=== PATIENT | male | born 1980 | race Caucasian/White ===

== ENCOUNTER 2022-01-22 09:15 | Emergency (ER) | payer BC ==
[2022-01-22] MEDS ORDERED: Lidocaine 1% 5 ML VIAL INJECT ONE (09:19)
[2022-01-22] MEDS ORDERED: Bacitracin Oint 1 GM U/D Packet TOP ONE (09:37)
[2022-01-22] MEDS ORDERED: Diphtheria,Pertussis(Acell),Tetanus Vaccine 0.5 ML Syringe IM ONE (09:37)
== END 2022-01-22 09:47 | disposition home or self-care (01) ==
LOC: DL.ED 09:15
DX: S60.551A Superficial foreign body of right hand, initial encounter (principal); Z23 Encounter for immunization; Z86.16 Personal history of COVID-19; W45.8XXA Other foreign body or object entering through skin, initial encounter
CPT/HCPCS: 90471; 90715; 99283-25